=== PATIENT | male | born 1985 | race Caucasian/White ===

== ENCOUNTER 2016-09-26 14:16 | Emergency (ER) | payer BC, OTHER, SELFPAY ==
[2016-09-26 14:55] VITALS: O2SAT 97
[2016-09-26] MEDS ORDERED: MOTRIN 600 MG PO ONE (15:27)
[2016-09-26] MEDS ORDERED: Augmentin 875-125 Tablet PO ONE (15:27)
--- NOTE | 2016-09-26 15:31 | ERPHSYRPT ---
- History of Present Illness Time Seen by Provider: 09/26/16 14:30 Source: patient Exam Limitations: clinical condition Patient Subjective Stated Complaint: PT REPORTS WAKING UP TO LEFT EAR WITH A LOT OF PRESSURE ET DECREASED HEARING-DENIES RECENT ILLNESS-DENIES FEVER Triage Nursing Assessment: PT PINK WARM ET DRY-A & O X 3-A LOT OF WAX NOTED IN EAR-NO SWELLING OR DRAINAGE NOTED Physician History: PATIENT COMPLAINS OF LEFT EARACHE SINCE THIS AM. DENIES FEVER, HEADACHE, SORETHROAT, OR DRAINAGE FROM EAR. Timing/Duration: abrupt onset Severity: severe ENT Location: ear (L) Prearrival Treatment: no prearrival treatment Modifying Factors: Improves With: nothing Associated Symptoms: ear pain (L) Allergies/Adverse Reactions: acetaminophen [From [place]] Allergy (Verified 09/26/16 14:55) hydrocodone bitartrate [From [place]] Allergy (Verified 09/26/16 14:55) tramadol Allergy (Verified 09/26/16 14:55) Home Medications: Omeprazole/Sodium Bicarbonate [Zegerid 40 mg Capsule] 1 tab PO DAILY 06/10/15 [ History] Hx Tetanus, Diphtheria Vaccination/Date Given: Yes Hx Influenza Vaccination/Date Given: No Hx Pneumococcal Vaccination/Date Given: No Immunizations Up to Date: Yes - Review of Systems Constitutional: No Fever, No Chills Eyes: No Symptoms Ears, Nose, & Throat: Ear Pain Respiratory: No Symptoms, No Cough, No Dyspnea Cardiac: No Symptoms, No Chest Pain, No Edema, No Syncope Abdominal/Gastrointestinal: No Symptoms, No Abdominal Pain, No Nausea, No Vomiting, No Diarrhea Genitourinary Symptoms: No Symptoms, No Dysuria Musculoskeletal: No Symptoms, No Back Pain, No Neck Pain Skin: No Rash Neurological: No Dizziness, No Focal Weakness, No Sensory Changes Psychological: No Symptoms Endocrine: No Symptoms All Other Systems: Reviewed and Negative - Past Medical History Pertinent Past Medical History: Yes Neurological History: No Pertinent History ENT History: Other Cardiac History: No Pertinent History Respiratory History: No Pertinent History Endocrine Medical History: No Pertinent History Musculoskeletal History: No Pertinent History GI Medical History: GERD Other Medical History: barretts esoghagus - Past Surgical History Past Surgical History: Yes Other Surgical History: dental extractions - egds - Social History Smoking Status: Never smoker Exposure to second hand smoke: No Drug Use: none Patient Lives Alone: No - Nursing Vital Signs Nursing Vital Signs: Initial Vital Signs Temperature 98.3 F Temperature Source Oral Pulse Rate 79 Respiratory Rate 22 Blood Pressure [Right Arm] 128/78 Pain Intensity 5 - Physical Exam General Appearance: no apparent distress Eye Exam: bilateral eye: normal inspection, PERRL, EOMI Ear Exam: left ear: TM red, TM bulging, bilateral ear: auricle normal, canal normal Nasal Exam: normal inspection Throat Exam: normal, pharynx normal Neck Exam: normal inspection Abdominal Exam: non-tender Skin Exam: normal color SpO2: 97 Oxygen Delivery: Room Air Ordered Tests: Medication Summary Discontinued Medications Generic Name Dose Route Start Last Admin Trade Name Freq PRN Reason Stop Dose Admin Amoxicillin/Clavulanate Potassium 875 mg 09/26/16 15:27 09/26/16 15:34 Augmentin 875-125 Tablet PO 09/26/16 15:28 875 mg STAT ONE Administration Amoxicillin/Clavulanate Potassium Confirm 09/26/16 15:32 Augmentin 875-125 Tablet Administered 09/26/16 15:33 Dose 875 mg .ROUTE .STK-MED ONE Ibuprofen 600 mg 09/26/16 15:27 09/26/16 15:34 Motrin 600 Mg PO 09/26/16 15:28 600 mg STAT ONE Administration Ibuprofen Confirm 09/26/16 15:32 Motrin 600 Mg Administered 09/26/16 15:33 Dose 600 mg .ROUTE .STK-MED ONE - Progress Progress Note: 09/26/16 15:51 PATIENT GIVEN AUGMENTIN 875MG ORALLY, MOTRIN 600MG ORALLY Counseled pt/family regarding: diagnosis, need for follow-up - Departure Time of Disposition: 15:55 Departure Disposition: Home Clinical Impression: LEFT OTITIS MEDIA/EXTERNA, REMOVAL CERUMEN LEFT EAR CANAL Condition: Stable Critical Care Time: No Referrals: DOCTOR,NO FAMILY [Primary Care Provider] - Additional Instructions: ANTIBIOTIC AUGMENTIN 875MG TWICE DAILY FOR 10 DAYS. TYLENOL #3 EVERY 4 HOURS FOR PAIN DISCOMFORT. CORTISPORIN OTIC SUSPENSION 3 DROPS INTO THE EAR CANAL 4 TIMES DAILY FOR 7 DAYS. CONSULT YOUR FAMILY PHYSICIAN IN 1 WEEK. Prescriptions: Codeine Phosphate/APAP #3 [Tylenol #3 Tablet] 1 tab PO Q4HPRN PRN #15 tablet PRN Reason: Pain Amox Tr/Potass Clav. 875 mg [Augmentin 875-125 Tablet] 875 mg PO BID #20 tablet Neomy Sulf/Polymyx B Sulf/Hc [Cortisporin Ear Suspension] 3 drops OT QID #10 drops.susp
[2016-09-26] MEDS ORDERED: MOTRIN 600 MG ONE (15:32)
[2016-09-26] MEDS ORDERED: Augmentin 875-125 Tablet ONE (15:32)
[2016-09-26 15:42] VITALS: BP 128/78
[2016-09-26 16:00] VITALS: PULSE 78
== END 2016-09-26 16:00 | disposition home or self-care (01) ==
LOC: ED 14:16
DX: H66.92 Otitis media, unspecified, left ear (principal); H60.92 Unspecified otitis externa, left ear
CPT/HCPCS: 99283; A9270-GY

== ENCOUNTER 2017-07-17 16:34 | Emergency (ER) | payer BC ==
[2017-07-17 17:38] VITALS: O2SAT 96
[2017-07-17] MEDS ORDERED: TORAdol 30 mg Injection IM ONE (17:52)
[2017-07-17] MEDS ORDERED: Celestone Soluspan 6MG/ML IM ONE (17:52)
--- NOTE | 2017-07-17 17:57 | ERPHSYRPT ---
- History of Present Illness Time Seen by Provider: 07/17/17 17:35 Source: patient Patient Subjective Stated Complaint: approx 1900 07/16/17 pt states he pulled on a garage door and it was frozen, may have "pulled my back" Triage Nursing Assessment: pt up to cart per self, no deformities noted or neuro deficits noted. pt indicates mid low back as area of pain, indicating it is a "7" Physician History: CC: back pain Hx: 31 y/o patient of Dr Joe Tafoya with low back pain since last night. He pulled on the garage door which was iced in last night. Pain in low back. No radiation. No N/T/W. No fever or chills. No prior cancer. No chest or abd pain. Pain moderate and worse with movement. He works at [employer]. Back Pain Location: lumbar spine Severity of Pain-Max: moderate Severity of Pain-Current: moderate Allergies/Adverse Reactions: acetaminophen [From [place]] Allergy (Verified 09/26/16 14:55) hydrocodone bitartrate [From [place]] Allergy (Verified 09/26/16 14:55) tramadol Allergy (Verified 09/26/16 14:55) Home Medications: Omeprazole/Sodium Bicarbonate [Zegerid 40 mg Capsule] 1 tab PO DAILY 06/10/15 [ History] Ibuprofen [Wal-Profen] 1,000 mg PO Q4HPRN PRN 07/17/17 [History] Hx Tetanus, Diphtheria Vaccination/Date Given: Yes Hx Influenza Vaccination/Date Given: No Hx Pneumococcal Vaccination/Date Given: No - Review of Systems Constitutional: No Fever, No Chills Eyes: No Symptoms Ears, Nose, & Throat: No Symptoms Respiratory: No Cough, No Dyspnea Cardiac: No Chest Pain Abdominal/Gastrointestinal: No Abdominal Pain, No Nausea, No Vomiting Genitourinary Symptoms: No Dysuria, No Hematuria, No Incontinence, No Urinary Retention Musculoskeletal: Back Pain, No Neck Pain Skin: No Rash Neurological: No Focal Weakness, No Headache, No Parasthesia All Other Systems: Reviewed and Negative - Past Medical History Pertinent Past Medical History: Yes Neurological History: No Pertinent History ENT History: Other Cardiac History: No Pertinent History Respiratory History: No Pertinent History Endocrine Medical History: No Pertinent History Musculoskeletal History: No Pertinent History GI Medical History: GERD Other Medical History: barretts esoghagus - Past Surgical History Past Surgical History: Yes Other Surgical History: dental extractions - egds - Social History Smoking Status: Never smoker Exposure to second hand smoke: No Drug Use: none Patient Lives Alone: No - Nursing Vital Signs Nursing Vital Signs: Initial Vital Signs Temperature 97.8 F 07/17/17 17:38 Pulse Rate 88 07/17/17 17:38 Respiratory Rate 16 07/17/17 17:38 Blood Pressure 158/91 07/17/17 17:38 O2 Sat by Pulse Oximetry 96 07/17/17 17:38 Pain Scale Pain Intensity 7 - Physical Exam General Appearance: alert, other (fair skinned with nevi- advised derm follow up ) Eye Exam: PERRL/EOMI Ears, Nose, Throat Exam: normal ENT inspection, moist mucous membranes Neck Exam: normal inspection, non-tender, supple Respiratory Exam: normal breath sounds Cardiovascular Exam: regular rate/rhythm Gastrointestinal Exam: soft, No tenderness, No distention Back Exam: normal inspection, vertebral tenderness (low) Extremity Exam: normal inspection, normal range of motion Neurologic Exam: alert, oriented x 3, cooperative, 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 Work slip given. Rx norflex. Cel[place] given here. Counseled pt/family regarding: diagnosis, need for follow-up - Departure Time of Disposition: 17:55 Departure Disposition: Home Clinical Impression: Low back sprain Qualifiers: Encounter type: initial encounter Qualified Code(s): S33.9XXA - Sprain of unspecified parts of lumbar spine and pelvis, initial encounter Condition: Stable Critical Care Time: No Referrals: LUIS ANGEL TAFOYA [Primary Care Provider] - Instructions: Lumbar Muscle Strain (DC) Additional Instructions: BACK INJURY 1. May apply moist heat frequently for relief of pain. Take care not to burn the skin. Do not use heat for more than 30 minutes at a time. 2. Try to sleep on a firm bed, flat on your back. 3. If no improvement is noticed in 2-3 days, follow up with your family physician. 4. If you notice any numbness, tingling, weakness, or problems with your bowel or bladder, you should call your family physician or return to the emergency department. Rx norflex- no driving or operating machinery. [facility] to [facility]. Contionue ibuprofen 600mg every [address] Follow up with Dr Tafoya. Off work today and tomorrow. Prescriptions: Orphenadrine Citrate 100 mg [Norflex 100 MG Tablet] 1 tab PO BID #10 tab
[2017-07-17] MEDS ORDERED: TORAdol 30 mg Injection ONE ×2 (18:02→18:08)
[2017-07-17] MEDS ORDERED: Celestone Soluspan 6MG/ML ONE ×2 (18:04→18:10)
[2017-07-17 18:14] VITALS: BP 137/77; PULSE 81
== END 2017-07-17 18:44 | disposition home or self-care (01) ==
LOC: ED 16:34
DX: S33.5XXA Sprain of ligaments of lumbar spine, initial encounter (principal); X50.0XXA Overexertion from strenuous movement or load, initial encounter
CPT/HCPCS: 96372; 99284; J0702; J1885

== ENCOUNTER 2023-05-22 12:17 | Emergency (ER) | payer BC ==
[2023-05-22 13:14] VITALS: RESP 18; TEMP 97
[2023-05-22 16:02] VITALS: O2SAT 95
[2023-05-22] MEDS ORDERED: TYLENOL EXTRA STRENGTH 500 MG PO STA (16:28)
[2023-05-22] MEDS ORDERED: TYLENOL EXTRA STRENGTH 500 MG ONE (16:30)
--- NOTE | 2023-05-22 16:43 | XRAY ---
Indication: Low back pain radiating both legs. No known injury. Multiple contiguous axial images obtained through the lumbar spine. Sagittal and coronal reformatted images obtained. Comparison: None Axial images at L5-S1 level demonstrates mild broad-based disc osteophyte complex. Also moderate left paracentral focal disc protrusion/herniation effacing the thecal sac without canal stenosis. Lesser minimal broad-based disc osteophyte complex at L3-L5 levels. Facets are symmetric. Sagittal and coronal reformatted images demonstrates normal lumbar alignment/lordosis. Mild L5-S1 disc space narrowing. No acute compression fracture or subluxation. Visualized noncontrasted soft tissues demonstrates benign appearing bilateral adrenal calcifications. Impression: L3-S1 degenerative disc disease. Moderate left paracentral focal disc protrusion/herniation at L5-S1. Incidental bilateral adrenal calcifications.
[2023-05-22 17:06] VITALS: BP 136/78; PULSE 68
--- NOTE | 2023-05-22 17:06 | ERPHSYRPT ---
- History of Present Illness Time Seen by Provider: 05/22/23 13:20 Source: patient Exam Limitations: no limitations Patient Subjective Stated Complaint: "I've been going to the Chiropractic for a few months for back issues and the pain been bad and I tried to get in with Nicole duff (WELFARE ELIGIBILITY INTERVIEWER) but she couldn't see me today so I came here". Triage Nursing Assessment: Pt presents to ER with spouse for complaints of lower lumber pain. States has had issues with lower lumber pain from unknown injury of source since approx December 2022. Been recieving care from [facility] and states they told him he has scoliosis. Pt is alert and oriented x 3. Skin is pink, warm, and dry. Ambulates in short shuffle with assist. Rates pain 8/10 scale. Complains of numbness and tingling to bilateral legs. No obvious deformity noted. Area is tender upon exam. Respirations are easy and unlabored at this time. Pt is pleasant and communicates appropriately. Physician History: Patient is a 37-year-old white male who has had some back pain getting progressively worse over the last few weeks and months. He has been seeking early breastfeeding care specialist but today decided to try to see his PCP but was unable to so he presents to the emergency room.The pain is in the lower back and radiates into both hips and down the legs especially on the left. Method of Injury: unknown Quality: radiating Back Pain Location: lumbar spine Back Pain Radiation: lower legs Severity of Pain-Max: severe Severity of Pain-Current: moderate Allergies/Adverse Reactions: hydrocodone bitartrate [From [place]] Allergy (Verified 05/22/23 13:15) Home Medications: Lisinopril 10 mg [Zestril 10 MG] 10 mg PO DAILY 04/07/23 [History] Metoprolol Tartrate 25 mg [Lopressor 25MG Tab] 25 mg PO DAILY 04/07/23 [History] Sertraline HCl 50 mg [Zoloft 50 mg Tablet] 50 mg PO DAILY 04/07/23 [History] Loratadine 10 mg [Claritin 10 mg] 10 mg PO DAILY 05/22/23 [History] Hx Tetanus, Diphtheria Vaccination/Date Given: Yes Hx Influenza Vaccination/Date Given: No Hx Pneumococcal Vaccination/Date Given: No Travel Risk - International Travel Have you traveled outside of the country in past 3 weeks: No - Coronavirus Screening Are you exhibiting any of the following symptoms?: No Close contact with a COVID-19 positive Pt in past 14-21 Days: No - Vaccine Status Have you recieved a Covid-19 vaccination: Yes Cellular 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: Pfizer - Vaccination Dates Date of 2cond Vaccination (if applicable): unk - Review of Systems Constitutional: No Fever, No Chills Eyes: No Symptoms Ears, Nose, & Throat: No Symptoms Respiratory: No Cough, No Dyspnea Cardiac: No Chest Pain, No Edema, No Syncope Abdominal/Gastrointestinal: No Abdominal Pain, No Nausea, No Vomiting, No Diarrhea Genitourinary Symptoms: No Dysuria Musculoskeletal: Back Pain, No Neck Pain Skin: No Rash Neurological: No Dizziness, No Focal Weakness, No Sensory Changes Psychological: No Symptoms Endocrine: No Symptoms All Other Systems: Reviewed and Negative - Past Medical History Pertinent Past Medical History: Yes Neurological History: No Pertinent History ENT History: Other Cardiac History: Hypertension Respiratory History: No Pertinent History Endocrine Medical History: No Pertinent History Musculoskeletal History: No Pertinent History GI Medical History: GERD Psycho-Social History: Depression Other Medical History: barretts esoghagus - Past Surgical History Past Surgical History: Yes Neuro Surgical History: No Pertinent History Cardiac: No Pertinent History Respiratory: No Pertinent History Gastrointestinal: No Pertinent History Genitourinary: Kidney Surgery Musculoskeletal: No Pertinent History Male Surgical History: No Pertinent History Other Surgical History: dental extractions - egds - Social History Smoking Status: Never smoker Exposure to second hand smoke: No Drug Use: none Patient Lives Alone: No - Nursing Vital Signs Nursing Vital Signs: Initial Vital Signs Temperature 97 F 05/22/23 13:04 Pulse Rate 76 05/22/23 13:04 Respiratory Rate 18 05/22/23 13:04 Blood Pressure 117/64 05/22/23 13:04 O2 Sat by Pulse Oximetry 94 L 05/22/23 13:04 Pain Scale Pain Intensity [Lower Back] 8 Pain Intensity 8 - Physical Exam General Appearance: mild distress, alert Eye Exam: PERRL/EOMI, eyes nml inspection Neck Exam: normal inspection, non-tender, supple, full range of motion, No meningismus, No midline tenderness Respiratory Exam: normal breath sounds, lungs clear, No respiratory distress Cardiovascular Exam: regular rate/rhythm, normal heart sounds Gastrointestinal Exam: soft, No tenderness, No mass Back Exam: vertebral tenderness, muscle spasm Extremity Exam: normal inspection, normal range of motion, No calf tenderness, No pedal edema Neurologic Exam: alert, oriented x 3, cooperative, 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 tested, normal mood/affect, sensory deficit (Tingling in both lower extremities), abnormal gait, other (Straight leg raising negative), No motor deficits Skin Exam: normal color, warm, dry, No rash SpO2: 95 - Course Nursing assessment & vital signs reviewed: Yes Ordered Tests: Active Orders 24 hr Category Date Time Status LUMBAR SPINE W/O [CT] Stat Exams 05/22/23 15:44 Completed Medication Summary Discontinued Medications Generic Name Dose Route Start Last Admin Trade Name Mariana PRN Reason Stop Dose Admin Acetaminophen 1,000 mg 05/22/23 16:28 05/22/23 16:31 Acetaminophen 500 Mg Tablet PO 05/22/23 16:29 1,000 mg STAT STA Administration Acetaminophen Confirm 05/22/23 16:30 Acetaminophen 500 Mg Tablet Administered 05/22/23 16:31 Dose 1,000 mg .ROUTE .STLazarus Effect-MED ONE - Progress Progress: unchanged Medical Desision Making - Diagnostic Testing Radiological Interpretation: Reviewed by me - Departure Departure Disposition: Home Clinical Impression: Herniated lumbar intervertebral disc Condition: Stable Critical Care Time: No Referrals: CHELY MCDANIELS NP [Primary Care Provider] - Follow up/PCP as directed Instructions: Sciatica (DC), Low Back Pain (DC) Prescriptions: Methylprednisolone Packet [Medrol Dosepack] 4 mg PO DAILY 5 Days #1 packet Tramadol HCl 50 mg [Ultram 50 mg] 50 mg PO Q6H 3 Days #12 tablet
== END 2023-05-22 17:24 | disposition home or self-care (01) ==
LOC: ED 12:17
DX: M51.26 Other intervertebral disc displacement, lumbar region (principal); I10 Essential (primary) hypertension; Z79.52 Long term (current) use of systemic steroids; Z79.891 Long term (current) use of opiate analgesic; Z79.899 Other long term (current) drug therapy
CPT/HCPCS: 72131; 99283; A9270-GY

== ENCOUNTER 2023-06-16 17:10 | Emergency (ER) | payer BC ==
[2023-06-16 17:36] VITALS: BP 144/91; PULSE 86; TEMP 96.7; O2SAT 95
--- NOTE | 2023-06-16 17:58 | ERPHSYRPT ---
- History of Present Illness Time Seen by Provider: 06/16/23 17:35 Source: patient, family Exam Limitations: no limitations Patient Subjective Stated Complaint: Pt began vomiting on Monday night and went to [facility] on Monday and was diagnosed with shingles on his right side, forehead, back and it is starting to go around the front Triage Nursing Assessment: Pt brought to the ER by his , hypertensive, rates pain as 610, first break out of shingles, has been vomiting prior to getting medication, pulses normal, skin n/w/d, walked to the room Physician History: Patient is a 37-year-old white male who broke out with a viral appearing rash on the right flank approximately 8 days ago he has been treated with Valtrex but has had no other medicines. He started vomiting 4 days ago and is unable to retain any medicines. Timing/Duration: week(s) (2) Quality: burning, itchy, painful Severity: moderate Location: scalp, face, torso Possible Causes: other (Zoster) Allergies/Adverse Reactions: hydrocodone bitartrate [From [place]] Allergy (Verified 05/22/23 13:15) Home Medications: Lisinopril 10 mg [Zestril 10 MG] 10 mg PO DAILY 04/07/23 [History] Metoprolol Tartrate 25 mg [Lopressor 25MG Tab] 25 mg PO DAILY 04/07/23 [History] Sertraline HCl 50 mg [Zoloft 50 mg Tablet] 100 mg PO DAILY 04/07/23 [History] Loratadine 10 mg [Claritin 10 mg] 10 mg PO DAILY 05/22/23 [History] Valacyclovir HCl [Valacyclovir] 1,000 mg PO TID 06/16/23 [History] Hx Tetanus, Diphtheria Vaccination/Date Given: Yes Hx Influenza Vaccination/Date Given: No Hx Pneumococcal Vaccination/Date Given: No Travel Risk - International Travel Have you traveled outside of the country in past 3 weeks: No - Coronavirus Screening Are you exhibiting any of the following symptoms?: No Close contact with a COVID-19 positive Pt in past 14-21 Days: No - Vaccine Status Have you recieved a Covid-19 vaccination: Yes 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 - Vaccination Dates Date of 2cond Vaccination (if applicable): unk - Review of Systems Constitutional: No Fever, No Chills Eyes: No Symptoms Ears, Nose, & Throat: No Symptoms Respiratory: No Cough, No Dyspnea Cardiac: No Chest Pain, No Edema, No Syncope Abdominal/Gastrointestinal: No Abdominal Pain, No Nausea, No Vomiting, No Diarrhea Genitourinary Symptoms: No Dysuria Musculoskeletal: No Back Pain, No Neck Pain Skin: Rash (Rash in the right flank is totally compatible with shingles the other lesions are isolated and less compatible.) Neurological: No Dizziness, No Focal Weakness, No Sensory Changes Psychological: No Symptoms Endocrine: No Symptoms All Other Systems: Reviewed and Negative - Past Medical History Pertinent Past Medical History: Yes Neurological History: No Pertinent History ENT History: Other Cardiac History: Hypertension Respiratory History: No Pertinent History Endocrine Medical History: No Pertinent History Musculoskeletal History: No Pertinent History GI Medical History: GERD Psycho-Social History: Depression Other Medical History: barretts esoghagus - Past Surgical History Past Surgical History: Yes Neuro Surgical History: No Pertinent History Cardiac: No Pertinent History Respiratory: No Pertinent History Gastrointestinal: No Pertinent History Genitourinary: Kidney Surgery Musculoskeletal: No Pertinent History Male Surgical History: No Pertinent History Other Surgical History: dental extractions - egds - Social History Smoking Status: Never smoker Exposure to second hand smoke: No Drug Use: none Patient Lives Alone: No - Nursing Vital Signs Nursing Vital Signs: Initial Vital Signs Temperature 96.7 F 06/16/23 17:25 Pulse Rate 86 06/16/23 17:25 Blood Pressure 144/91 06/16/23 17:25 O2 Sat by Pulse Oximetry 95 06/16/23 17:25 Pain Scale Pain Intensity 6 - Physical Exam General Appearance: moderate distress, alert Eye Exam: PERRL/EOMI, eyes nml inspection Ears, Nose, Throat Exam: normal ENT inspection, pharynx normal, moist mucous membranes Neck Exam: normal inspection, non-tender, supple, full range of motion Respiratory Exam: normal breath sounds, lungs clear, No respiratory distress Cardiovascular Exam: regular rate/rhythm, normal heart sounds Gastrointestinal/Abdomen Exam: soft, mass, No tenderness Back Exam: normal inspection, normal range of motion, No CVA tenderness, No vertebral tenderness Extremity Exam: normal inspection, normal range of motion Neurologic Exam: alert, oriented x 3, cooperative, normal mood/affect, sensation nml, No motor deficits Skin Exam: rash (Patient had a scattered rash in the right flank there is definitely a rash that is compatible with shingles or zoster the other lesions on the face forehead scalp and upper extremities look less compatible) SpO2 Interpretation: normal SpO2: 95 O2 Delivery: Room Air - Course Nursing assessment & vital signs reviewed: Yes - Progress Progress: unchanged Medical Desision Making - Independent Historian Additional History obtained from: Spouse - Risk of complications Low Risk: Low risk of morbidity from additional dx testing or treatment - Departure Departure Disposition: Home Clinical Impression: Herpes zoster Condition: Stable Critical Care Time: No Referrals: CHELY MCDANIELS NP [Primary Care Provider] - Follow up/PCP as directed Instructions: Shingles (DC) Prescriptions: Ondansetron ODT 4 MG [Zofran Odt 4 mg] 4 mg PO Q6H PRN PRN #10 tablet PRN Reason: Vomiting Prednisone 10 mg [Deltasone 10 mg] 10 mg PO TID #12 tablet Gabapentin [Neurontin ] 100 mg PO TID 7 Days #21 cap
[2023-06-16] MEDS ORDERED: ZOFRAN ODT 4 MG PO ONE (18:04)
[2023-06-16] MEDS ORDERED: ZOFRAN ODT 4 MG ONE (18:06)
== END 2023-06-16 18:13 | disposition home or self-care (01) ==
LOC: ED 17:10
DX: B02.9 Zoster without complications (principal); R11.2 Nausea with vomiting, unspecified; I10 Essential (primary) hypertension; Z79.52 Long term (current) use of systemic steroids; Z79.899 Other long term (current) drug therapy
CPT/HCPCS: 99281; Q0162

== ENCOUNTER 2023-06-27 07:46 | Emergency (ER) | payer BC ==
[2023-06-27 08:05] VITALS: RESP 16; TEMP 98.5; O2SAT 95
[2023-06-27] MEDS ORDERED: TORAdol 30 mg Injection IM ONE (08:21)
[2023-06-27] MEDS ORDERED: DECADRON 10MG INJ. IM ONE (08:21)
--- NOTE | 2023-06-27 08:23 | ERPHSYRPT ---
- History of Present Illness Time Seen by Provider: 06/27/23 08:10 Source: patient Exam Limitations: no limitations Patient Subjective Stated Complaint: "I have lower back pain in my tailbone area and it shoots down my left leg. Yesterday my left leg went numb." Triage Nursing Assessment: Pt presents to ER with complaints of lower back pain. States pain is 8/10 scale. Pt states pain is near tailbone and radiates down back of left leg. Complaints of numbness and tingling down left leg and into left foot. Pt describes pain as burning and stabbing in nature. Been constant since Monday. Pt is alert and oriented x 3. Skin is pink, warm, and dry. Pt respirations are easy and unlabored. Pt complains of constipation because it hurts to push and using abdominal muscles. Pt skin is pink, warm, and dry. No obvious deformity. No pitting edema noted. Physician History: Patient is a 37-year-old male with known sciatica chronic low back pain currently awaiting approval for lumbar spine MRI presents to our ED with an acu te exacerbation of his chronic low back pain. Patient was in our ED last week for the same. Patient was treated with a steroid which significantly improved patient's symptomology. Patient states the steroids ran out and he is here for a another steroid dose. No trauma. Patient believed a sneeze exacerbated his pain. Pain radiates down the left posterior thigh. No fever. No nausea vomiting no diaphoresis no rash. No change in bowel bladder function. No saddle anesthesia. No lower extremity weakness. No fever. No recent back procedures. at bedside. They voiced no other complaints or concerns at this time. No urinary symptomology Portions of this note were created with voice recognition technology. There may be grammatical, spelling, punctuation or sound alike errors Timing/Duration: yesterday Method of Injury: other (No injury reported) Quality: burning Back Pain Location: lumbar spine Back Pain Radiation: lower legs (Left lower leg which is typical of his usual/known sciatica myology) Severity of Pain-Max: moderate Severity of Pain-Current: mild Modifying Factors: Improves With: movement Associated Symptoms: denies symptoms Previous symptoms: same symptoms as today Allergies/Adverse Reactions: acetaminophen [From Lortab] Allergy (Unknown, Verified 06/27/23 08:06) hydrocodone [From Lortab] Allergy (Unknown, Verified 06/27/23 08:06) hydrocodone bitartrate [From [place]] Allergy (Verified 06/27/23 08:06) Home Medications: Lisinopril 10 mg [Zestril 10 MG] 10 mg PO DAILY 04/07/23 [History] Metoprolol Tartrate 25 mg [Lopressor 25MG Tab] 25 mg PO DAILY 04/07/23 [History] Sertraline HCl 50 mg [Zoloft 50 mg Tablet] 100 mg PO DAILY 04/07/23 [History] Loratadine 10 mg [Claritin 10 mg] 10 mg PO DAILY 05/22/23 [History] Valacyclovir HCl [Valacyclovir] 1,000 mg PO TID 06/16/23 [History] Hx Tetanus, Diphtheria Vaccination/Date Given: Yes Hx Influenza Vaccination/Date Given: Yes Hx Pneumococcal Vaccination/Date Given: No Travel Risk - International Travel Have you traveled outside of the country in past 3 weeks: No - Coronavirus Screening Are you exhibiting any of the following symptoms?: No Close contact with a COVID-19 positive Pt in past 14-21 Days: No - Vaccine Status Have you recieved a Covid-19 vaccination: Yes [employer]: [employer] - Vaccination Dates Date of 2cond Vaccination (if applicable): unk - Review of Systems Constitutional: No Symptoms, No Fever, No Chills Eyes: No Symptoms Ears, Nose, & Throat: No Symptoms Respiratory: No Symptoms, No Cough, No Dyspnea Cardiac: No Symptoms, No Chest Pain, No Edema, No Syncope Abdominal/Gastrointestinal: No Symptoms, No Abdominal Pain, No Nausea, No Vomiting, No Diarrhea Genitourinary Symptoms: No Symptoms, No Dysuria Musculoskeletal: No Symptoms, No Back Pain, No Neck Pain Skin: No Symptoms, No Rash Neurological: No Symptoms, No Dizziness, No Focal Weakness, No Sensory Changes Psychological: No Symptoms Endocrine: No Symptoms Hematologic/Lymphatic: No Symptoms Immunological/Allergic: No Symptoms All Other Systems: Reviewed and Negative - Past Medical History Pertinent Past Medical History: Yes Neurological History: No Pertinent History ENT History: Other Cardiac History: Hypertension Respiratory History: No Pertinent History Endocrine Medical History: No Pertinent History Musculoskeletal History: No Pertinent History GI Medical History: GERD Psycho-Social History: Depression Other Medical History: barretts esoghagus, chronic lumbar back issue. - Past Surgical History Past Surgical History: Yes Neuro Surgical History: No Pertinent History Cardiac: No Pertinent History Respiratory: No Pertinent History Gastrointestinal: No Pertinent History Genitourinary: Kidney Surgery Musculoskeletal: No Pertinent History Male Surgical History: No Pertinent History Other Surgical History: dental extractions - egds - Social History Smoking Status: Never smoker Exposure to second hand smoke: No Drug Use: none Patient Lives Alone: No - Nursing Vital Signs Nursing Vital Signs: Initial Vital Signs Temperature 98.5 F 06/27/23 07:55 Pulse Rate 88 06/27/23 07:55 Respiratory Rate 16 06/27/23 07:55 Blood Pressure 132/91 06/27/23 07:55 O2 Sat by Pulse Oximetry 95 06/27/23 07:55 Pain Scale Pain Intensity 8 - Physical Exam General Appearance: no apparent distress, alert Eye Exam: PERRL/EOMI, eyes nml inspection Neck Exam: normal inspection, full range of motion, No meningismus, No midline tenderness Respiratory Exam: normal breath sounds, lungs clear, No respiratory distress Cardiovascular Exam: regular rate/rhythm, normal heart sounds, normal peripheral pulses, other (lower extremity pulses PT DP pulses palpable and equal bilaterally) Gastrointestinal Exam: soft, No tenderness, No mass Extremity Exam: normal inspection, normal range of motion, No calf tenderness, No pedal edema Peripheral Pulses: dorsalis-pedis (R): 2+, dorsalis-pedis (L): 2+ Neurologic Exam: alert, oriented x 3, cooperative, 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 as tested, normal mood/affect, nml station & gait, sensation nml, No motor deficits Skin Exam: normal color, warm, dry, No rash Lymphatic Exam: No adenopathy SpO2 Interpretation: normal SpO2: 95 O2 Delivery: Room Air - Course Nursing assessment & vital signs reviewed: Yes Ordered Tests: Medication Summary Discontinued Medications Generic Name Dose Route Start Last Admin Trade Name Freq PRN Reason Stop Dose Admin Dexamethasone Sodium Phosphate 10 mg 06/27/23 08:21 Dexamethasone Sod Phosphate 10 Mg/Ml IM 06/27/23 08:22 STAT ONE Ketorolac Tromethamine 60 mg 06/27/23 08:21 Ketorolac Tromethamine 30 Mg/Ml Inj IM 06/27/23 08:22 STAT ONE - Progress Progress: improved Progress Note: 37-year-old male presents to our ED with acute on chronic low back pain. Patient has known sciatica. Patient believes exacerbated his sciatica pain with a sneeze. Patient was in our ED last week for the same. Patient was treated with steroids and symptoms significantly improved. Patient requesting the same. No trauma. No urinary symptomology. No fever. Patient received a dose of Decadron and Toradol. A prescription for Toradol forwarded to patient's pharmacy. Pain improved. Patient will be discharged home. No indication for repeat imaging study. Patient had an x-ray last week and family does not want to repeat an imaging study until the MRI is approved. They voiced no other complaints or concerns at this time. Portions of this note were created with voice recognition technology. There may be grammatical, spelling, punctuation or sound alike errors Complexity problem addressed is moderate acute complicated No critical care time Complexity of data reviewed and analyzed is none. No specialized testing ordered. Diagnosis made based on history and physical exam. Risk complication and or risk of morbidity/mortality of patient management is moderate. A prescription for Toradol forwarded to patient's pharmacy. Vital stable. Time spent to discharge patient is approximately 15 minutes. Plan of care established for shared decision making. No social determinants of health present impede follow-up. portions of this note were created with voice recognition technology. There may be grammatical, spelling, punctuation or sound alike errors 06/27/23 08:32 Counseled pt/family regarding: diagnosis, need for follow-up - Departure Departure Disposition: Home Clinical Impression: Sciatica, Lumbosacral strain Condition: Stable Critical Care Time: No Referrals: CHELY MCDANIELS NP [Primary Care Provider] - Follow up/PCP as directed Additional Instructions: Discharge/Care Plan DEMETRIO RAMÍREZ was seen on 06/27/23 in the Emergency Room. The patient was counseled regarding Diagnosis,Lab results, Imaging studies, need for follow up and when to return to the Emergency Room. Prescriptions given: Discharge Note I have spoken with the patient and/or caregivers. I have explained the patient's condition, diagnosis and treatment plan based on the information available to me at this time. I have answered the patient's and/or caregiver's questions and addressed any concerns. The patient and/or caregivers have as good understanding of the patient's diagnosis, condition and treatment plan as can be expected at this point. The vital signs have been stable. The patient's condition is stable and appropriate for discharge from the emergency department. The patient will pursue further outpatient evaluation with the primary care physician or other designated or consulting physician as outlined in the discharge instructions. The patient and/or caregivers are agreeable to this plan of care and follow-up instructions have been explained in detail. The patient and/or caregivers have received these instruction. The patient/and or caregivers are aware that any significant change in condition or worsening of symptoms should prompt an immediate return to this or the closest emergency department or call 911. Prescriptions: Ketorolac Trometh 10 mg Tab [TORAdol 10 MG TABLET] 10 mg PO TID 5 Days #15 tablet
[2023-06-27] MEDS ORDERED: TORAdol 30 mg Injection ONE (08:33)
[2023-06-27] MEDS ORDERED: DECADRON 10MG INJ. ONE (08:33)
[2023-06-27 08:50] VITALS: BP 132/92; PULSE 70
== END 2023-06-27 09:00 | disposition home or self-care (01) ==
LOC: ED 07:46
DX: M54.42 Lumbago with sciatica, left side (principal); S39.012A Strain of muscle, fascia and tendon of lower back, initial encounter; I10 Essential (primary) hypertension; Z79.899 Other long term (current) drug therapy
CPT/HCPCS: 96372; 99283; J1100; J1885

== ENCOUNTER 2024-07-09 14:10 | Emergency (ER) | payer BC ==
[2024-07-09 14:55] VITALS: TEMP 96.4
[2024-07-09] MEDS ORDERED: Zofran 4 MG/2 ML VIAL ONE (14:57)
[2024-07-09] MEDS ORDERED: Sodium Chloride 0.9% 1000 ML 1,000 ML ONE ×2 (14:57→15:57)
[2024-07-09] MEDS: Sodium Chloride 0.9% 1000 ML 1,000 ML IV STA ×2 (14:59→15:59)
[2024-07-09] MEDS: Zofran 4 MG/2 ML VIAL IV ONE (15:01)
[2024-07-09 15:24] VITALS: O2SAT 95
[2024-07-09 15:36] LABS: Absolute Neutrophil Ct (ANC) 13.41 x10^3/uL (1.78-5.38); BASOPHIL % 0.1 % (0.2-1.2); Basophil (Absolute #) 0.02 x10^3/uL (0.01-0.08); Eosinophil % 0.7 % (0.8-7.0); Eosinophil (Absolute #) 0.11 x10^3/uL (0.04-0.54); Hematocrit 48.5 % (40.1-51.0); Hemoglobin 16.8 g/dL (13.7-17.5); IMMATURE GRAN # 0.06 x10^3u/L (0.001-0.031); IMMATURE GRAN % 0.4 % (0.001-0.429); Lymphocyte (Absolute #) 1.48 x10^3/uL (1.32-3.57); Lymphocytes % 9.4 % (21.8-53.1); Mean Cell Volume 81.2 fL (79.0-92.2); Mean Corpuscular Hemoglobin 28.1 pg (25.7-32.2); Mean Corpuscular Hgb Concent. 34.6 g/dL (32.3-36.5); Mean Platelet Volume 8.5 fL (9.4-12.4); Monocytes % 4.4 % (5.3-12.2); Platelet Count 400 x10^3/uL (163-337); Red Blood Count 5.97 x10^6/uL (4.63-6.08); Red Cell Distribution Width 12.8 % (11.6-14.4); White Blood Count 15.8 x10^3/uL (4.23-9.07)
[2024-07-09 15:42] LABS: ALBUMIN 5.2 g/dL (3.5-5.0); ANION GAP 19.1 MEQ/L (5-15); BILIRUBIN,TOTAL 0.7 mg/dL (0.2-1.3); Calcium 9.8 mg/dL (8.4-10.2); Creatinine 1 0.87 mg/dL (0.66-1.25); Potassium 4.2 mmol/L (3.5-5.1); Total Protein 9.9 g/dL (6.3-8.2)
[2024-07-09 16:05] LABS: INFLUENZA A NEGATIVE (NEGATIVE); INFLUENZA B NEGATIVE (NEGATIVE); RESPIRATORY SYNCTIAL VIRUS NEGATIVE (NEGATIVE); SARS-CoV-2 Xpert Express NEGATIVE (NEGATIVE)
[2024-07-09 16:06] VITALS: BP 138/101; PULSE 89; RESP 16
[2024-07-09 16:09] LABS: Appearance Clear (Clear); Bacteria None Seen /HPF (None Seen); Bilirubin Negative (Negative); Blood Negative (Negative); Epithelial Cells None Seen /HPF (None Seen); Glucose, Urine Negative (Negative); Hyaline Casts NONE SEEN /LPF (0-2); Ketones Negative (Negative); Leukocyte Esterase Negative (Negative); Nitrite Negative (Negative); Protein,Urine Dip Trace (Negative); RBC 0-2 /HPF (0-5); Specific Gravity 1.025 (1.005-1.030); WBC 0-2 /HPF (0-5)
--- NOTE | 2024-07-09 17:08 | ERPHSYRPT ---
- History of Present Illness Time Seen by Provider: 07/09/24 14:13 Historian: patient Exam Limitations: no limitations Patient Subjective Stated Complaint: pt here for vomiting that started this morning. with chills, no fever, no loose stools Triage Nursing Assessment: pt alert, resp easy, pale, sweaty, vomiting in er, no edema noted, moves all ext well Physician History: 38-year-old fairly healthy male presented in the ER with complains of multiple episodes of nonprojectile, nonbilious vomiting without hematemesis since this morning. Patient is not able to hold anything down. Denies any diarrhea but does have abdominal cramping off and on. Reports positive contact with coworker with similar symptoms. Denies any fever chills, cough congestion or difficulty breathing. Feels weak fatigued tired and dehydrated. Allergies/Adverse Reactions: acetaminophen [From Lortab] Allergy (Unknown, Verified 07/09/24 14:43) hydrocodone [From Lortab] Allergy (Unknown, Verified 07/09/24 14:43) hydrocodone bitartrate [From [place]] Allergy (Verified 07/09/24 14:43) Home Medications: Lisinopril 10 mg [Zestril 10 MG] 10 mg PO DAILY 04/07/23 [History] Metoprolol Tartrate 25 mg [Lopressor 25MG Tab] 25 mg PO DAILY 04/07/23 [History] Sertraline HCl 50 mg [Zoloft 50 mg Tablet] 100 mg PO DAILY 04/07/23 [History] Loratadine 10 mg [Claritin 10 mg] 10 mg PO DAILY 05/22/23 [History] Valacyclovir HCl [Valacyclovir] 1,000 mg PO TID 06/16/23 [History] Hx Tetanus, Diphtheria Vaccination/Date Given: No Hx Influenza Vaccination/Date Given: Yes Hx Pneumococcal Vaccination/Date Given: No Immunizations Up to Date: Yes Travel Risk - International Travel Have you traveled outside of the country in past 3 weeks: No - Emerging Infectious Disease Are you exhibiting symptoms associated with any current EIDs: Yes Symptoms: Vomitting - Review of Systems Constitutional: Fatigue, Weakness Eyes: No Symptoms Ears, Nose, & Throat: No Symptoms Respiratory: No Symptoms Cardiac: No Symptoms Abdominal/Gastrointestinal: Abdominal Pain, Nausea, Vomiting Genitourinary Symptoms: No Symptoms Musculoskeletal: Myalgias Neurological: No Symptoms Endocrine: No Symptoms Hematologic/Lymphatic: No Symptoms - Past Medical History Pertinent Past Medical History: Yes Neurological History: No Pertinent History ENT History: Other Cardiac History: Hypertension Respiratory History: No Pertinent History Endocrine Medical History: No Pertinent History Musculoskeletal History: No Pertinent History GI Medical History: GERD Psycho-Social History: Depression Other Medical History: barretts esoghagus, chronic lumbar back issue. - Past Surgical History Past Surgical History: Yes Neuro Surgical History: No Pertinent History Cardiac: No Pertinent History Respiratory: No Pertinent History Gastrointestinal: No Pertinent History Genitourinary: Kidney Surgery Musculoskeletal: No Pertinent History Male Surgical History: No Pertinent History Other Surgical History: dental extractions - egds - Social History Smoking Status: Former smoker Exposure to second hand smoke: No Drug Use: none Patient Lives Alone: No - Social Determinants of Health Will the patient participate in the screening: Unable to obtain - Nursing Vital Signs Nursing Vital Signs: Initial Vital Signs Pulse Rate 80 07/09/24 14:48 Respiratory Rate 18 07/09/24 14:48 Blood Pressure 158/110 07/09/24 14:48 O2 Sat by Pulse Oximetry 93 L 07/09/24 14:48 Pain Scale Pain Intensity 0 - Physical Exam General Appearance: no apparent distress Eye Exam: PERRL/EOMI Ears, Nose, Throat Exam: normal ENT inspection Neck Exam: normal inspection, full range of motion Respiratory Exam: normal breath sounds, lungs clear Cardiovascular Exam: regular rate/rhythm, normal heart sounds Gastrointestinal/Abdomen Exam: soft, normal bowel sounds, No tenderness Back Exam: normal inspection, normal range of motion Extremity Exam: normal inspection, normal range of motion Neurologic Exam: alert, oriented x 3, cooperative, 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 as tested Skin Exam: normal color SpO2 Interpretation: normal SpO2: 95 O2 Delivery: Room Air Ordered Tests: Active Orders 24 hr Category Date Time Status IV Insertion STAT Care 07/09/24 14:53 Active NPO (ED) STAT Care 07/09/24 14:53 Active CBC W DIFF Stat Lab 07/09/24 15:28 Completed CMP Stat Lab 07/09/24 15:28 Completed LIPASE Stat Lab 07/09/24 15:28 Completed UA W/RFX UR CULTURE Stat Lab 07/09/24 15:58 Completed Medication Summary Discontinued Medications Generic Name Dose Route Start Last Admin Trade Name [place] PRN Reason Stop Dose Admin Sodium Chloride 1,000 mls @ 999 mls/hr 07/09/24 14:53 07/09/24 16:55 Sodium Chloride 0.9% 1000 Ml IV 07/09/24 15:53 Infused .Q1H1M STA Infusion Sodium Chloride Confirm 07/09/24 14:57 Sodium Chloride 0.9% 1000 Ml Administered 07/09/24 14:58 Dose 1,000 mls @ ud .ROUTE .STK-MED ONE Sodium Chloride 1,000 mls @ 999 mls/hr 07/09/24 15:56 07/09/24 16:56 Sodium Chloride 0.9% 1000 Ml IV 07/09/24 16:56 Infused .Q1H1M STA Infusion Sodium Chloride Confirm 07/09/24 15:57 Sodium Chloride 0.9% 1000 Ml Administered 07/09/24 15:58 Dose 1,000 mls @ ud .ROUTE .STK-MED ONE Ondansetron HCl 4 mg 07/09/24 14:53 07/09/24 15:01 Ondansetron Hcl 4 Mg/2 Ml Vial IV 07/09/24 14:54 4 mg STAT ONE Administration Ondansetron HCl Confirm 07/09/24 14:57 Ondansetron Hcl 4 Mg/2 Ml Vial Administered 07/09/24 14:58 Dose 4 mg .ROUTE .STK-MED ONE Lab/Rad Data: Laboratory Result Diagrams 07/09/24 15:28 07/09/24 15:28 Laboratory Results 07/09/24 07/09/24 07/09/24 Range/Units 15:58 15:28 15:28 WBC (4.23-9.07) x10^3/uL RBC (4.63-6.08) x10^6/uL Hgb (13.7-17.5) g/dL Hct (40.1-51.0) % MCV (79.0-92.2) fL MCH (25.7-32.2) pg MCHC (32.3-36.5) g/dL RDW (11.6-14.4) % Plt Count (163-337) x10^3/uL MPV (9.4-12.4) fL Gran % (34.0-67.9) % Immature Gran % (Auto) (0.001-0.429) % Nucleat RBC Rel Count (0.00-0.2) % Eos # (Auto) (0.04-0.54) x10^3/uL Immature Gran # (Auto) (0.001-0.031) x10^3u/L Absolute Lymphs (auto) (1.32-3.57) x10^3/uL Absolute Monos (auto) (0.30-0.82) x10^3/uL Absolute Nucleated RBC (0.00-0.012) x10^3u/L Lymphocytes % (21.8-53.1) % Monocytes % (5.3-12.2) % Eosinophils % (0.8-7.0) % Basophils % (0.2-1.2) % Absolute Granulocytes (1.78-5.38) x10^3/uL Basophils # (0.01-0.08) x10^3/uL Sodium 142 (135-145) mmol/L Potassium 4.2 (3.5-5.1) mmol/L Chloride 108 H (98-107) mmol/L Carbon Dioxide 19 L (22-30) mmol/L Anion Gap 19.1 H (5-15) MEQ/L BUN 24 H (9-20) mg/dL Creatinine 0.87 (0.66-1.25) mg/dL Estimated GFR 114.0 ML/MIN Glucose 120 H (74-106) mg/dL Calcium 9.8 (8.4-10.2) mg/dL Total Bilirubin 0.70 (0.2-1.3) mg/dL AST 54 (17-59) U/L ALT 51 H (0-50) U/L Alkaline Phosphatase 77 (38-126) U/L Serum Total Protein 9.9 H (6.3-8.2) g/dL Albumin 5.2 H (3.5-5.0) g/dL Lipase 125 (23-300) U/L Urine Color Yellow (Yellow) Urine Appearance Clear (Clear) Urine pH 7.0 (4.6-8.0) Ur Specific [place] 1.025 (1.005-1.030) Urine Protein Trace A (Negative) Urine Glucose (UA) Negative (Negative) mg/dL Urine Ketones Negative (Negative) Urine Blood Negative (Negative) Urine Nitrite Negative (Negative) Urine Bilirubin Negative (Negative) Urine Urobilinogen 1.0 A (0.2) mg/dL Ur Leukocyte Esterase Negative (Negative) U Hyaline Cast (Auto) NONE SEEN (0-2) /LPF Urine Microscopic RBC 0-2 (0-5) /HPF Urine Microscopic WBC 0-2 (0-5) /HPF Ur Epithelial Cells None Seen (None Seen) /HPF Urine Bacteria None Seen (None Seen) /HPF Urine Culture Reflexed NO (NO) Influenza Type A Ag NEGATIVE (NEGATIVE) Influenza Type B Ag NEGATIVE (NEGATIVE) RSV (PCR) NEGATIVE (NEGATIVE) SARS-CoV-2 (PCR) NEGATIVE (NEGATIVE) 07/09/24 Range/Units 15:28 WBC 15.8 H (4.23-9.07) x10^3/uL RBC 5.97 (4.63-6.08) x10^6/uL Hgb 16.8 (13.7-17.5) g/dL Hct 48.5 (40.1-51.0) % MCV 81.2 (79.0-92.2) fL MCH 28.1 (25.7-32.2) pg MCHC 34.6 (32.3-36.5) g/dL RDW 12.8 (11.6-14.4) % Plt Count 400 H (163-337) x10^3/uL MPV 8.5 L (9.4-12.4) fL Gran % 85.0 H (34.0-67.9) % Immature Gran % (Auto) 0.4 (0.001-0.429) % Nucleat RBC Rel Count 0.0 (0.00-0.2) % Eos # (Auto) 0.11 (0.04-0.54) x10^3/uL Immature Gran # (Auto) 0.06 H (0.001-0.031) x10^3u/L Absolute Lymphs (auto) 1.48 (1.32-3.57) x10^3/uL Absolute Monos (auto) 0.70 (0.30-0.82) x10^3/uL Absolute Nucleated RBC 0.00 (0.00-0.012) x10^3u/L Lymphocytes % 9.4 L (21.8-53.1) % Monocytes % 4.4 L (5.3-12.2) % Eosinophils % 0.7 L (0.8-7.0) % Basophils % 0.1 L (0.2-1.2) % Absolute Granulocytes 13.41 H (1.78-5.38) x10^3/uL Basophils # 0.02 (0.01-0.08) x10^3/uL Sodium (135-145) mmol/L Potassium (3.5-5.1) mmol/L Chloride (98-107) mmol/L Carbon Dioxide (22-30) mmol/L Anion Gap (5-15) MEQ/L BUN (9-20) mg/dL Creatinine (0.66-1.25) mg/dL Estimated GFR ML/MIN Glucose (74-106) mg/dL Calcium (8.4-10.2) mg/dL Total Bilirubin (0.2-1.3) mg/dL AST (17-59) U/L ALT (0-50) U/L Alkaline Phosphatase (38-126) U/L Serum Total Protein (6.3-8.2) g/dL Albumin (3.5-5.0) g/dL Lipase (23-300) U/L Urine Color (Yellow) Urine Appearance (Clear) Urine pH (4.6-8.0) Ur Specific [place] (1.005-1.030) Urine Protein (Negative) Urine Glucose (UA) (Negative) mg/dL Urine Ketones (Negative) Urine Blood (Negative) Urine Nitrite (Negative) Urine Bilirubin (Negative) Urine Urobilinogen (0.2) mg/dL Ur Leukocyte Esterase (Negative) U Hyaline Cast (Auto) (0-2) /LPF Urine Microscopic RBC (0-5) /HPF Urine Microscopic WBC (0-5) /HPF Ur Epithelial Cells (None Seen) /HPF Urine Bacteria (None Seen) /HPF Urine Culture Reflexed (NO) Influenza Type A Ag (NEGATIVE) Influenza Type B Ag (NEGATIVE) RSV (PCR) (NEGATIVE) SARS-CoV-2 (PCR) (NEGATIVE) - Progress Progress: improved, re-examined Progress Note: 07/09/24 17:02 38-year-old is evaluated in the ER for abdominal cramping with nausea vomiting since morning. Patient has abdominal exam soft nontender with normoactive bowel sounds of repeated evaluation. He is given fluids bolus x 2 along with Zofran known no vomiting while in the ER and did tolerate orally. He is feeling much improved on reevaluation. Workup showed white count of 15, chemistries consistent with dehydration. Has negative COVID flu and RSV. I do not think patient needs CT imaging as his symptoms seems to be viral gastroenteritis, recommended supportive care and outpatient follow-up. Discussed signs symptoms of worsening needing return to ER which he seems understanding. Counseled pt/family regarding: lab results, diagnosis, need for follow-up Medical Desision Making - Diagnostic Testing Diagnostic test were ordered, analyzed, and reviewed by me: Yes - Risk of complications The pt has a mod risk of morbidity or mortality based on: Need for prescription drug management - Departure Departure Disposition: Home Clinical Impression: Gastroenteritis, Dehydration Condition: Stable Critical Care Time: No Referrals: CHELY MCDANIELS, SALES DESIGNER [Primary Care Provider] - Follow up with PCP 1 day Instructions: Viral gastroenteritis in adults Additional Instructions: Plenty of fluids to keep yourself well-hydrated. Take Tylenol/Zofran as needed. Follow-up with primary care for reevaluation. Return to ER for intractable vomiting or if develop abdominal pain, fever chills etc. Prescriptions: Ondansetron ODT 4 MG [Zofran Odt 4 mg] 1 ea PO QIDPRN PRN #10 tablet PRN Reason: n/v
== END 2024-07-09 17:28 | disposition home or self-care (01) ==
LOC: ED 14:10
DX: K52.9 Noninfective gastroenteritis and colitis, unspecified (principal); E86.0 Dehydration; R11.2 Nausea with vomiting, unspecified; I10 Essential (primary) hypertension; Z79.899 Other long term (current) drug therapy
CPT/HCPCS: 0241U; 36415; 80053; 81001; 83690; 85025; 96360; 96374; 99284; J2405